=== PATIENT | female | born 1950 | race Caucasian/White ===

== ENCOUNTER 2019-12-27 15:48 | Outpatient (REF) | payer MEDICARE, SELFPAY ==
[2019-12-27 18:35] LABS: Thyroid Stimulating Hormone 4.23 mIU/mL (0.32-4.0)
== END 2019-12-27 15:49 | disposition home or self-care (01) ==
LOC: HO.MANLR 15:48
PROVIDERS: PCP Internal Medicine; Visit Provider Internal Medicine
DX: E03.9 Hypothyroidism, unspecified (principal)
CPT/HCPCS: 84443

== ENCOUNTER 2022-04-22 06:14 | Outpatient (REF) | payer MEDICARE, SELFPAY ==
[2022-04-22 11:57] LABS: MANUAL DIFF FLAG NO
[2022-04-22 12:15] LABS: Basophils Absolute Auto 0.1 X10*3/uL (0.0-0.2); Basophils Percent Auto 0.6 % (0-2); Eosinophils Absolute Auto 0.2 X10*3/uL (0.0-0.4); Eosinophils Percent Auto 2.1 % (0-4); Hematocrit 45.7 % (37.0-47.0); Hemoglobin 14.9 g/dl (12.0-16.0); Imm Gran Abs Auto 0.02 X10*3/uL (0.00-0.03); Imm Gran Pct Auto 0.3 % (0.0-0.4); Lymphocytes Absolute Auto 4.3 X10*3/uL (1.2-4.9); Lymphocytes Percent Auto 54.3 % (20-40); Mean Corpuscular HGB Conc 32.6 g/dl (31.0-35.0); Mean Corpuscular Hemoglobin 29.2 pg (27.0-33.0); Mean Corpuscular Volume 89.4 fL (80.0-98.0); Mean Platelet Volume 10.6 fL (9.4-12.3); Monocytes Absolute Auto 0.4 X10*3/uL (0.1-1.2); Monocytes Percent Auto 5.1 % (2-11); Neutrophils Percent Auto 37.6 % (45-73); Platelet Count 188 X10*3/uL (160-400); Red Blood Count 5.11 X10*6/uL (4.20-5.50); Red Cell Distribution Width 12.6 % (11.0-16.0); White Blood Count 7.9 X10*3/uL (4.8-10.8)
[2022-04-22 12:43] LABS: Alanine Aminotransferase 15 U/L (0-31); Albumin Level 4.2 g/dL (3.5-5.0); Alkaline Phosphatase 61 U/L (39-117); Anion Gap 12 (12-20); Aspartate Amino Transferase 16 U/L (5-31); Bilirubin Total 0.7 mg/dL (0.0-1.0); Blood Urea Nitrogen 23 mg/dL (9-16); Calcium 9.4 mg/dL (8.4-10.2); Carbon Dioxide 28 mmol/L (22-29); Chloride 108 mmol/L (96-108); Cholesterol 220 mg/dL; Estimated Glomerular Filt Rate > 60; Glucose Random 108 mg/dL (60-115); HDL Cholesterol 61 mg/dL; LDL Cholesterol Calculated 135 mg/dl; Potassium 4.5 mmol/L (3.3-5.1); Sodium 143 mmol/L (135-145); Total Protein 6.3 g/dL (6.5-8.0); Triglycerides 122 mg/dL
[2022-04-22 12:46] LABS: Thyroid Stimulating Hormone 2.09 uIU/mL (0.32-4.0); Vitamin D 25-OH Total 13.3 ng/mL (>30)
== END 2022-04-22 06:15 | disposition home or self-care (01) ==
LOC: HO.HMGCLDS 06:14
PROVIDERS: PCP Internal Medicine; Visit Provider Internal Medicine
DX: Z00.00 Encounter for general adult medical examination without abnormal findings (principal); R53.83 Other fatigue
CPT/HCPCS: 36415; 80053; 80061; 82306; 84443; 85025

== ENCOUNTER 2023-04-22 10:03 | Outpatient (REF) | payer MEDICARE, SELFPAY ==
[2023-04-22 13:20] LABS: MANUAL DIFF FLAG NO
[2023-04-22 13:22] LABS: Basophils Percent Auto 0.3 % (0-2); Eosinophils Absolute Auto 0.1 X10*3/uL (0.0-0.4); Eosinophils Percent Auto 0.9 % (0-4); Hematocrit 46.2 % (37.0-47.0); Imm Gran Abs Auto 0.02 X10*3/uL (0.00-0.03); Imm Gran Pct Auto 0.2 % (0.0-0.4); Lymphocytes Absolute Auto 4.4 X10*3/uL (1.2-4.9); Lymphocytes Percent Auto 48.3 % (20-40); Mean Corpuscular HGB Conc 32.5 g/dl (31.0-35.0); Mean Corpuscular Hemoglobin 29.1 pg (27.0-33.0); Mean Corpuscular Volume 89.5 fL (80.0-98.0); Mean Platelet Volume 10.4 fL (9.4-12.3); Monocytes Absolute Auto 0.4 X10*3/uL (0.1-1.2); Monocytes Percent Auto 4.1 % (2-11); Neutrophils Absolute Auto 4.2 x10*3/uL (2.0-8.3); Neutrophils Percent Auto 46.2 % (45-73); Platelet Count 202 X10*3/uL (160-400); Red Blood Count 5.16 X10*6/uL (4.20-5.50); Red Cell Distribution Width 12.7 % (11.0-16.0)
[2023-04-22 14:19] LABS: Alanine Aminotransferase 22 U/L (0-31); Albumin Level 4.2 g/dL (3.5-5.0); Alkaline Phosphatase 72 U/L (39-117); Anion Gap 11 (12-20); Aspartate Amino Transferase 22 U/L (5-31); Bilirubin Total 0.5 mg/dL (0.0-1.0); Blood Urea Nitrogen 23 mg/dL (9-16); Calcium 9.9 mg/dL (8.4-10.2); Carbon Dioxide 28 mmol/L (22-29); Chloride 107 mmol/L (96-108); Cholesterol 192 mg/dL (<200); Estimated Glomerular Filt Rate > 60; Glucose Random 92 mg/dL (60-115); HDL Cholesterol 65 mg/dL (>40); LDL Cholesterol Calculated 102 mg/dL (<100); Potassium 4.4 mmol/L (3.3-5.1); Sodium 142 mmol/L (135-145); Total Protein 6.6 g/dL (6.5-8.0); Triglycerides 127 mg/dL (<150)
[2023-04-22 14:26] LABS: Free T4 (Free Thyroxine) 1.02 ng/dL (0.71-1.85); Thyroid Stimulating Hormone 2.15 uIU/mL (0.32-4.0)
== END 2023-04-22 10:04 | disposition home or self-care (01) ==
LOC: HO.MANLDS 10:03
PROVIDERS: Visit Provider Internal Medicine
DX: Z00.00 Encounter for general adult medical examination without abnormal findings (principal); E03.9 Hypothyroidism, unspecified
CPT/HCPCS: 36415; 80053; 80061; 84439; 84443; 85025

== ENCOUNTER 2024-09-07 10:51 | Outpatient (REF) | payer MEDICARE, SELFPAY ==
--- NOTE | ~2024-09-07 | XR_ITS ---
EXAMINATION: XR BILATERAL HIPS WITH AP PELVIS CLINICAL INFORMATION: ACUTE RT SIDED LOW BACK PAIN,LUMBAGA WITH SCIATICA COMPARISON: None available. TECHNIQUE: AP and frog-leg lateral views of each hip and an AP view of the pelvis. FINDINGS: SI joints are mildly degenerated with small marginal osteophytes. Small focal sclerotic density cephalad to the right acetabulum is likely a bone island. Total hip arthroplasty has been performed on the right. There is heterotopic ossification in the soft tissues between the acetabular roof and the proximal end of the femoral component. There is no abnormal lucency at the bone metal interfaces. There is no periprosthetic fracture. The left hip joint demonstrates subtle axial joint space narrowing. There is a small marginal osteophyte involving the posterior femoral head. Lateral Center edge angle measured 41 degrees. XR/XR hip BI w PEL1V IMPRESSION: Total hip arthroplasty on the right with heterotopic ossification. Mild axial joint space narrowing involving the left hip joint suggests an underlying primary articular cartilage etiology rather than primary osteoarthritis. Coxa profunda, left hip. Electronically signed by: Von Sutton MD 09/07/2024 11:52 AM EDT
--- NOTE | ~2024-09-07 | XR_ITS ---
EXAMINATION: XR LUMBOSACRAL SPINE CLINICAL INFORMATION: RT HIP REPLACEMENT, LUMBAGO WITH SCIATICA,LOW BACK PAIN COMPARISON: None TECHNIQUE: Three views of the lumbosacral spine. FINDINGS: Right upper quadrant clips are probably related to cholecystectomy. There are 5 nonrib-bearing lumbar segments. Convex left curvature of the thoracolumbar junction measured 13 degrees. T12-L1: There is mild disc space narrowing. L1-2: Unremarkable. L2-3: There is severe space narrowing with endplate sclerosis and facet sclerosis. L3-4: There is mild disc space narrowing with subtle anterolisthesis and endplate ossified. There is facet sclerosis and osteophytes. L4-5: There is grade 1 anterolisthesis with mild to moderate disc space narrowing and endplate irregularity. There is facet sclerosis and osteophytes. L5-S1: There is moderate to severe disc space narrowing with large anterior osteophyte and mild facet sclerosis. XR/XR lumbar spine 2-3V IMPRESSION: Degenerative disc disease with facet arthropathy and mild dextroscoliosis. Electronically signed by: Von Sutton MD 09/07/2024 11:55 AM EDT
--- OUTSIDE RECORDS SUMMARY | 2024-09-07 12:14 | XMS_ITS | Data Portability ---
Author Organization [facility], Telehealth Patient Home Address [address] [place] [address] Assessment Encounter Date Assessment Date Assessment LastModified by Organization Details LastModified Time 04/27/2024 04/27/2024 Patient presente d to office today for their Medicare Annual Wellness Visit. Education was provided on healthy nutrition, including a diet rich in fruits and vegetables, minimizing simple carbohydrates, salt, and saturated fats. Encouraged regular cardiovascular exercise such as walking at least 30 minutes daily, 5 times per week. Emphasized preventive health measures and educated pt on fall prevention and community-based lifestyle interventions to help reduce health risks and promote healthy living. [email or web address] Not available 04/26/2024 15:56:24 Plan of Treatment Reminders Order Date Submit Date Provider Last Modified By Organization Details Last Modified Time Details Appointments FOLLOW UP 2024 09:45A M ANAI MATHEW Not available Not available Not available PROCEDURE 15 2024 09:45A M ANAI MATHEW Not available Not available Not available ANNUAL EXAM 2025 10:30A M DR AVERY Not available Not available Not available Lab TSH + free T4, serum 2023 024 [facility], [address] [place] [address], [id number], 04/22/2023 09:45:51 CMP, serum or plasma 2023 024 [facility], [address] [place] [address], [id number], 04/23/2023 11:13:17 CBC w/ auto diff 2023 024 [facility], [address] [place] [address], [id number], 04/22/2023 09:45:51 lipid panel, blood 2023 024 [facility], [address] [place] [address], [id number], 04/22/2023 09:45:51 CMP, serum or plasma 2022 023 [facility], [address] [place] [address], [id number], 04/23/2022 11:24:13 CBC w/ auto diff 2022 023 [facility], [address] [place] [address], [address], 04/16/2022 12:05:18 lipid panel, blood 2022 023 [facility], [address] [place] [address], [address], 04/23/2022 11:24:13 vitamin D, 25-hydrox y, total, serum 2022 023 [facility], [address] [place] [address], [address], 04/24/2022 08:46:57 TSH, serum or plasma 2022 023 [facility], [address] [place] [address], [id number], 04/16/2022 12:05:18 Referral orthopedi c surgeon referral 2023 024 donaldo Griffin MD, [address], [place], [address], 04/29/2023 08:15:48 Procedures None recorded. Surgeries None recorded. Imaging XR, lumbosacr al spine, 2 or 3 view 2024 025 [facility] (Imaging), [address] [place], [address], 09/07/2024 12:01:15 XR, hip + pelvis, bilateral , 3 or 4 view - bilateral 2024 025 [facility] ([facility]), [address] [place], [address], 09/07/2024 11:58:54 Medication Orders cyclobenz aprine 10 mg tablet 2024 025 [facility], [address] [facility] [place], [address], 09/07/2024 10:14:10 mupirocin 2 % topical ointment 2024 025 [facility], [address] [facility], [address], 04/27/2024 11:53:00 clotrimaz ole 10 mg lizbeth 2022 023 [facility], [address] [place], [address], 04/22/2023 09:28:38 Patient TargetsNo targets recorded. Patient Instructions Encounter Date Encounter Id Patient Instructions Last Modified By Organization Details Last Modified Time 12/27/2019 [id number] knee arthritis: care instructions Not available 12/27/2019 15:43:59 04/16/2022 [id number] candidiasis: car e instructions Not available 04/16/2022 11:51:03 04/22/2023 [id number] knee arthritis: care instructions Not available 04/22/2023 09:57:32 04/27/2024 [id number] advance care planning: care instructions Not available 04/27/2024 11:50:21 Discussed and explained advance directives such as standard forms to the . Face to face discussion lasted for a duration of ___ minutes. [email or web address] Not available 04/26/2024 15:56:24 Reason for Referral Orthopedic Surgeon Referral for Osteoarthritis of knee Referring Physician: Billy Avery, Internal Medicine, Encounter Date: 04/22/2023 Results Created Date Observation Date Name Description Value Unit Range Abnormal Flag Note LastModifiedBy Organization Detail LastModifiedTime 09/08/19 25 09/07/2024 XR, hip + pelvi s, bilat eral, 3 or 4 view No observ ation record ed. [facility] (Medical Records) [address] [place], [address], 09/07/2024 12:06:44 09/08/19 25 09/07/2024 imagi ng/di agnos tic resul t No observ ation record ed. [facility] (Medical Records) [address] [place], [address], 09/07/2024 11:59:48 09/08/19 25 09/07/2024 XR, lumbo sacra l spine , 2 or 3 view No observ ation record ed. [facility] (Medical Records) [address] [place], [address], 09/07/2024 12:01:15 Result Notes None recorded. Problems Name Problem SNOMED Code Status Onset Date Resolution Date Notes Provider Name and Address Organization Details Recorded Time Hypothyro idism 35149021 Active 2017 Marycruz ross [facility] 8 08:16:36 Chronic fatigue syndrome 04098133 Active 2017 Marycruz ross [facility] 8 08:16:48 Fibromyal princess 620826328 Active 2017 Marycruz ross [facility] 8 08:17:25 Osteoarth ritis of knee 374761538 Active 2017 Marycruz ross [facility] 8 08:17:43 Piriformi s syndrome 123476565 Active 2017 Marycruz ross [facility] 8 08:17:55 Sleep disorder 63158402 [facility] 08:18:07 Iliotibia l band friction syndrome of right knee 288574733279 104 Active 2019 Billy Avery, DO [address] [place] [address], [address], [facility] 0 10:15:25 Candidias is of mouth 73124524 Active 2022 Billy Avery, DO [address] [place] [address], [address], [facility] 3 11:49:31 Colitis 81496310 Active 2023 Billy Avery, DO [address] [place] [address], [address], [facility] 4 21:21:13 Folliculi tis 10798540 Active 2024 Billy Avery, DO [address] [place] [address], [address], [facility] 5 11:52:33 Spasm 59084418 Active 2024 Billy Avery, DO [address] [place] [address], [address], [facility] 5 13:39:08 Right-karime ed piriformi s syndrome 173955790823 108 Active 2024 ANAI MATHEW [address] [place] [address], [address], [facility] 5 09:59:50 Acute back pain with sciatica 764057933 Active 2024 ANAI MATHEW [address] [place] [address], [address], [facility] 5 10:07:15 Familial dysautono kim 69133028 Active 2024 ANAI MATHEW [address] [place] [address], [address], [facility] 5 10:10:57 Impacted cerumen in right ear 808055095251 9103 Active 2024 ANAI MATHEW [address] [place] [address], [address], [facility] 5 10:24:49 Problem Notes None recorded. Procedures Surgical History Date Name Laterality Status Provider Name and Address Organization Details Recorded Time 019 Excision and closure completed Billy Avery DO [address] [place] [address], [address], [facility] 11/17/2018 15:52:50 018 Colonoscopy completed Marycruz Carranza [facility] 01/06/2018 08:37:18 001 Joint Replacement completed Alexus Chavez NP, S [address] [place] [address], [address], [facility] 12/10/2017 10:42:36 980 Cholecystectomy completed Alexus Chavez NP, S [address] [place] [address], [address], [facility] 12/10/2017 10:42:50 Tot disc arthrp ea addl lmbr completed Alexus Chavez NP, S [address] [place] [address], [address], [facility] 12/10/2017 11:03:54 Imaging Results None recorded. Procedure Notes None recorded. Medical Equipment None Reported. Allergies Allergen ID Allergen Name Allergen Category Reaction Reaction Severity Criticality Documentation Date Start Date Code Code System Note Provider Name and Address Organization Details Recorded Time 2425 Substance with sulfonami de structure and antibacte rial mechanism of action (substanc e) medicatio n Not available Not available Not available 12/10/2017 79733 8003 [facility] 10:35:58 3763 adhesive tape environme nt,medica tion Not available Not available Not available 05/12/2019 [id number] UNK Billy Avery DO [address] [place] [address], [address], [facility] 0 10:03:16 8392 prednison e medicatio n other Not available low 11/28/2023 8640 RxNorm Sukhwinder ross, [facility] 4 11:42:48 Medications Name Sig Start Date Stop Date Status Note LastModified by Organization Details LastModified Time cyclobenzap rine 10 mg tablet Take 1 tablet 3 times a day by oral route as needed for 14 days. 2024 active Not Available Not Available Not Avai lable clotrimazol e 10 mg lizbeth Take 1 tablet 4 times a day by oral route for 7 days. 04/22 completed Not Available Not Available Not Available [place] Thyroid 90 mg tablet TAKE 1 TABLET BY MOUTH EVERY DAY 04/16 completed Not Available Not Available Not Available Medrol (Pj) 4 mg tablets in a dose pack Take 1 dose pk by oral route as directed for 6 days. 04/27 completed Not Available Not Available Not Available cephalexin 500 mg capsule Take 1 capsule 3 times a day by oral route for 10 days. 11/23 completed Not Available Not Available Not Available ibuprofen 200 mg tablet Take 2 tablets 3 times a day by oral route. active Not Available Not Available No t Available mupirocin 2 % topical ointment APPLY A SMALL AMOUNT TO THE AFFECTED AREA BY TOPICAL ROUTE 3 TIMES PER DAY 2024 active Not Available Not Available Not Avai lable magnesium active Not Available Not Ashley ilable Not Available Tylenol PRN active Not Available Not Avail able Not Available Zyrtec 04/22 completed Not Available Not Available Not Available [place] 3 active Not Available Not Avail able Not Available Probiotic active Not Available Not Ashley ilable Not Available salicylic acid 27.5 % topical film-formin g liquid APPLY BY TOPICAL ROUTE ONCE DAILY ;COVER ENTIRE WART SURFACE WITH 2 APPLICATI ONS, ALLOWING THE FIRST TO DRY BEFORE APPLYING THE SECOND 11/04 completed Not Available Not Available Not Available Motrin IB 200 mg capsule Take 1 capsule every 6 hours by oral route. 12/26 completed Not Available Not Available Not Available Vitals Date Recorded Body height Body mass index (BMI) Body weight Heart rate Oxygen saturation Oxygen saturation in Arterial blood by Pulse oximetry Systolic And Diastolic Provider Name and Address Organization Details Last Updated DateTime 3 157.48 cm 40.3 kg/m2 758615. 48 g 66 /min 96 % 96 % 110/60 mm[Hg] Zunilda Marshallpee [facility] 3 11:33:29 Date Recorded Body height Body mass index (BMI) Body weight Heart rate Oxygen saturation Oxygen saturation in Arterial blood by Pulse oximetry Systolic And Diastolic Provider Name and Address Organization Details Last Updated DateTime 4 157.48 cm 38.8 kg/m2 30557.9 4 g 72 /min 99 % 99 % 142/84 mm[Hg] Billy Avery DO [address] [place], [address] [place] [address] 4 09:28:00 Date Recorded Body height Body mass index (BMI) Body weight Heart rate Oxygen saturation Oxygen saturation in Arterial blood by Pulse oximetry Systolic And Diastolic Provider Name and Address Organization Details Last Updated DateTime 5 157.48 cm 40.2 kg/m2 89878.2 4 g 66 /min 98 % 98 % 134/86 mm[Hg] Alma [facility] 5 11:30:15 Date Recorded Body height Body mass index (BMI) Body weight Heart rate Oxygen saturation Oxygen saturation in Arterial blood by Pulse oximetry Systolic And Diastolic Provider Name and Address Organization Details Last Updated DateTime 5 157.48 cm 40.7 kg/m2 311093. 3 g 90 /min 95 % 95 % 128/84 mm[Hg] lAma Santizo [facility] 5 09:47:53 Date Recorded Body height Body mass index (BMI) Body weight Heart rate Oxygen saturation Oxygen saturation in Arterial blood by Pulse oximetry Systolic And Diastolic Provider Name and Address Organization Details Last Updated DateTime 0 157.48 cm 39.3 kg/m2 71041.7 2 g 76 /min 96 % 96 % 124/70 mm[Hg] Billy Avery DO [address] [place], [address], [facility] 0 15:08:05 Social History Question Answer Notes LastModified by Organizat ion Details LastModified Time Tobacco Smoking Status Never Smoker Not Available [employer] 12/28/2019 03:36:23 What Was The Date Of Your Most Recent Tobacco Screening? 09/07/2024 [email or web address] Information not available 09/07/2024 Sex: Unknown Functional Status None recorded. Mental Status None recorded. Family History Relationship Description Onset Age of this Age Resolved Age Notes LastModified by Organization Details LastModified Time Father Parkinsonism 86 [place] us cell skin cancer enmanuelwski Not available 12/10/2017 10:40:54 Mother Hypertensive disorder lung cancer eskawski Not available 12/10/2017 10:41:30 Medical History Condition Response Coronary Artery Disease N Gout N Kidney Stones Y Blood Diseases N Hyperthyroidism N Blood Transfusion Y Breast Cancer N Hypothyroidism Y Lung Disease N Depression Y COPD N Defects or Inherited Disease N Difficulty Swallowing N Anesthesia Complications N Anxiety Disorder Y Meniere's disease N Muscle, Joint, or Bone Problems Y Vision or Eye Problems Y Arthritis N Mental Disorder N Cancer N Stroke N Varicosities N Bladder or Kidney Problems N High Cholesterol N Liver Disease N Fibromyalgia Y Headaches N Kidney Disease N Allergies/Hayfever Y Heart Problems N Hospitalizations Y Thyroid Problems Y GI Problems Y Eating Disorder N Skin Problems N Anemia N MRSA exposure N Constipation Y Mental Illness N Diabetes N Ovarian Cancer N Seizures/Epilepsy N Tuberculosis N Congestive Heart Failure (CHF) N Eczema N Abuse/Domestic Violence N Diverticulitis N Asthma N Reflux/GERD Y Hepatitis N Heart Disease N Pulmonary Embolism N Chronic Ear Infections N Hypertension N Chicken Pox Y Autism Spectrum Disorder (ASD) N Osteoporosis N Thrombophilias N Gynecological History Statement/Question Response If Post Menopausal, Age at Menopause 56 Age at Menarche 12 Obstetrics History GPAL:G 0 P 0 0 0 0 Immunizations Vaccine Type Date Status Note Provider Nam e and Address Organization Details Recorded Time Influenza, split virus, quadrivalent, preservative 8 completed Billy Avery DO [address] [place], [address], [facility] 12/03/2017 06:58:53 Influenza, split virus, quadrivalent, preservative 10/25/201 9 completed Billy Avery DO [address] [place] [address], [address], [facility] 12/20/2018 08:31:38 Pneumococcal conjugate PCV 13 9 completed Billy Avery DO [address] [place] [address], [address], [facility] 12/20/2018 08:31:48 Influenza, split virus, quadrivalent, preservative 0 completed Billy Avery DO [address] [place] [address], [address], [facility] 12/27/2019 15:09:12 Past Encounters Encounter ID Performer Location Encounter Start Date Encounter Closed Date Diagnosis/Indication Diagnosis SNOMED-CT Code Diagnosis ICD10 Code Diagnosis Note [id number] Billy Avery [facility] Internal [address],[place] [address] 10/06/2017 11:15:20 10/06/2017 12:36:01 Lipoma of back 690268242 D17.1 Hypothyroidism 80730785 E03.9 History of polyp of colon 996301322 Z86.010 Pt would like applicatio n for cologuard, will fax in Screening procedure 2012 5006 Z13.9 Pt defers mammogram [id number] Billy Avery [facility] Internal [address],[place] [address] 11/04/2017 10:31:05 11/04/2017 10:56:15 Colorectal cancer detected by DNA-based stool screening 153453440 R85.89 [id number] Billy Avery [facility] Internal [address],[place] [address] 11/14/2017 10:42:33 11/14/2017 16:04:22 Allergic reaction to insect bite 194658893 W57.XXXA Colorectal cancer detected by DNA-based stool screening 352242363 R85.89 scheduled colonoscop y [id number] Billy Amezquitaricha [facility] Internal [address],[place] [address] 11/19/2017 09:07:24 11/19/2017 09:42:11 Adult health examination 540600512 Z00.00 encouraged to keep active and walking Screening for malignant neoplasm of colon 450939102 Z12.11 already screening with colonoscop y Screening for osteoporosis 891417211 Z13.820 Screening mammography 24 245761 Z12.31 refused Hypothyroidism 08582583 E03.9 tsh Osteoarthr itis of knee 223589426 M17.0 cont activity and has been doing better [id number] Billy Avery [facility] Internal Medicine [address] [facility] [place] [address] 12/10/2017 10:29:52 12/15/2017 09:34:12 Adult health examination 871978715 Z00.00 Active or passive immunization 062933870 Z23 Screening procedure 2012 5006 Z13.9 [id number] Billy Avery [facility] Internal Medicine [address] [facility] [facility] [place] [address] 08/10/2018 15:46:30 08/10/2018 16:39:42 Fibromyalgia 608773275 M79.7 Hypothyroidism 68617638 E03.9 Verruca vulgaris 5968538 3 B07.9 [id number] Billy Avery [facility] Internal Medicine [address] [facility] [place] [address] 11/04/2018 13:52:43 11/04/2018 14:35:46 Hypothyroidism 35213776 E03.9 tsh is 0.2 but she is doing ok overall Piriformis syndrome 1291 74866 G57.00 Fibromyalgia 648566347 M 79.7 stable overall [id number] Billy Avery [facility] Internal Medicine [address] [facility] [place] [address] 11/17/2018 15:20:26 11/17/2018 16:05:50 Ganglion/synovial cyst - hand 651838135 M67.441 excixion of lesion well monico [id number] Billy Avery [facility] Internal Medicine [address] [facility] [place] [facility] [place] [address] 05/12/2019 09:59:08 05/12/2019 10:31:10 Piriformis syndrome 661212102 G57.00 will set her up for a referral for botox inj of piriformis since she has completed physical therapy program Hypothyroidism 92127464 E03.9 tsh is 0.95 and she is doing ok overall has lost some weight Osteoarthr itis of right knee joint 4610928998 83651 M17.11 [id number] Billy Avery [facility] Internal Medicine [address] [facility] [facility] [place] [address] 07/02/2019 09:28:42 07/02/2019 10:13:49 Hypothyroidism 23677711 E03.9 tsh is 0.95 and she is doing ok overall has lost some weight Iliotibial band friction syndrome of right knee 4653448436 72360 M76.31 will cont conserv tx Osteoarthr itis of knee 298473012 M17.0 cont activity and has been doing better Cellulitis of right lower limb 8015869735 7463587 L03.115 will apply clotrimazo le and mupirocin due to puncture hx from plant [id number] Billy Avery [facility] Internal Medicine [address] [facility],[place] [address] 12/27/2019 14:33:54 12/27/2019 16:10:23 Hypothyroidism 96951803 E03.9 she will get her tsh checked today given she is has lost some weight Osteoarthr itis of knee 997871285 M17.0 cont activity and has been doing better Sleep disorder 02977198 G47.9 doing well and is having no major issues [id number] Billy Avery [facility] Internal Medicine [address] [facility] [address] 04/16/2022 11:25:55 04/16/2022 14:12:25 Active or passive immunization 392199337 Z23 Adult [facility] th examination 600086607 Z00.00 encouraged to keep active and walkingsti ll having issues with her right sciatic region in the piriformis and glute and radiates down her right leg Candidiasis of mouth 797 92523 B37.0 [id number] Billy Avery [facility] Internal Medicine [address] [facility] [address] 04/22/2023 09:23:34 04/22/2023 10:05:51 Active or passive immunization 569492533 Z23 utd flu rsv not done reccomende d Adult heal th examination 328796103 Z00.00 encouraged to keep active and walkingsti ll having issues with her right sciatic region in the piriformis and glute and radiates down her right leg Hypothyroidism 41202945 E03.9 she will get her tsh checked today given she is has lost some weight 8 lbs Osteoarthr itis of knee 392250341 M17.0 cont activity and has been doing better [id number] Billy Avery, [facility] Internal Medicine [address],[place] [address] 04/27/2024 11:22:42 04/27/2024 12:06:46 Adult health examination 937133212 Z00.00 encouraged to keep active and walking Screening for cardiovascular system disease 650756019 Z13.6 reviewed from last year we ximena wait another year Screening for osteoporosis 554492798 Z13.820 doesnt require Screening mammography 24 286508 Z12.31 refused Fibromyalgia 812104297 M 79.7 stable overall Hypothyroidism 45072525 E03.9 she will get her tsh checked today given she is has lost some weight 8 lbs Folliculitis 58578450 L7 3.9 [id number] Billy Avery [facility] Internal Medicine [address] [facility] [address] 09/07/2024 09:40:28 09/07/2024 11:24:13 Depression screening 443015734 Z13.31 NEGATIVE Right-side d piriformis syndrome 5579977766 84159 G57.01 will set up with PT for eval and continued treatment planrecomm ended eval for low back issues as well that may be contributi ng to change it gait History of repair of hip joint 348657931 Z96.641 will set up with XR hip bilateral, comparison from good hip to R hip Acute back pain with sciatica 695139185 M54.41 set up with XR spine and hips Familial dysautonomia 29 989581 G90.1 father and sister Spasm 48649479 R25.2 will set up with another fill of msk relaxer Impacted c erumen in right ear 7512086840 831336 H61.21 lavage on 09/07/24 Health Concerns Section Related Observation LastModified by Organization Detcat ls LastModified Time None Recorded Concern Status LastModified by Organization Details LastModified Time None Recorded Advance Directives Directive None Recorded Payers Insurance Date Sequence Insurance Name Policy Number Policy Mcmanus Covered Member ID Mcmanus Member ID Guarantor Name 09/04/2024 1 [place]ARE B[place] [employer] Nenita Lara [id number] Nenita Macro 09/04/2024 2 [place] [id number] Nenita Lara [id number] Nenita Lara Notes Date Note Type Note Provider Name a nd Address Organization Details Recorded Time 0 text/html relates has stopped the thyroid med in nov bc was having sx such as burning in stomach and into throat and tongue burning stopped the dose in 01 december relates seems to be doing good relates yesterday was severely fatigued appetit good sleeps good Billy Avery DO [address] [place] [address], [phone], [facility] 12/27/2019 15:45:01 3 text/html Annual WellnessReported bypatient.Diet and Nutrition:healthy diet Fracture Risk:no history of fractures; no recent explained fracture; no sudden unexplained fractures; no previous musculoskeletal injuries Physical Activity:exercises on a regular basis; recent increase in physical activity; good physical condition Additional Lifestyle Factors:no tobacco use; no alcohol intake; stopped drinking alcohol Depression Risk:never feels sad, empty, or tearful; no loss of interest in activities; no significant changes in weight; no sleep disturbances or insomnia; no agitation; no loss of energy; no feelings of worthlessness or guilt; no thoughts of suicide; no history of depression; no history of mood disorders Hearing:no loss of hearing Vision:no vision problems Billy Avery DO [address] [place] [address], [phone], [facility] 04/16/2022 11:56:53 4 text/html Annual WellnessReported bypatient.Diet and Nutrition:healthy diet Fracture Risk:no history of fractures; no recent explained fracture; no sudden unexplained fractures; no previous musculoskeletal injuries Physical Activity:exercises on a regular basis; recent increase in physical activity; good physical condition Additional Lifestyle Factors:no tobacco use; no alcohol intake; stopped drinking alcohol Depression Risk:never feels sad, empty, or tearful; no loss of interest in activities; no significant changes in weight; no sleep disturbances or insomnia; no agitation; no loss of energy; no feelings of worthlessness or guilt; no thoughts of suicide; no history of depression; no history of mood disorders Hearing:no loss of hearing Vision:no vision problems has been having a lot of muscle aches and painrelates that her back and knees have been hurtingshe has bought a new mattress and is increasing her magnesiumshe wants to see an ortho now Billy Avery, DO [address] [place], [phone], [facility] 04/22/2023 09:58:25 5 text/html Medicare Annual Wellness VisitReported bypatient.Diet and Nutrition:healthy diet Fracture Risk:no history of fractures; no recent explained fracture; no sudden unexplained fractures; no previous musculoskeletal injuries Physical Activity:exercises on a regular basis; recent increase in physical activity; good physical condition Depression Risk:never feels sad, empty, or tearful; no loss of interest in activities; no significant changes in weight; no sleep disturbances or insomnia; no agitation; no loss of energy; no feelings of worthlessness or guilt; no thoughts of suicide; no history of depression; no history of mood disorders Orientation:no disorientation to time; no disorientation to date; no disorientation to place Concentration and Memory:no decreased concentrating ability; no memory lapses or loss; does not forget words Speech/Motor difficulties:no speech difficulties; no difficulty expressing formulated concepts; no difficulty with fine manipulative tasks; no difficulty writing/copying; no slowed reaction time; does not knock things over when trying to pick them up Hearing:no loss of hearing Vision:no vision problems Activities of Daily Living:able to bathe with limited or no assistance; able to contol urination and bowels; able to dress with limited or no assistance; able to feed self with limited or no assistance; able to get out of chair or bed with limited or no assistance; able to groom with limited or no assistance; able to toilet with limited or no assistance Instrumental Activities of Daily Living:able to do house work with limited or no assistance; able to grocery shop with limited or no assistance; able to manage medications with limited or no assistance; able to manage money with limited or no assistance; able to prepare meals with limited or no assistance; able to use the phone with limited or no assistance Falls Risk Assessment:no frequent falls while walking; no fall in the past year; no fall since last visit; no dizziness/vertigo Home Safety:no unsafe [place] hazzards; no unsafe stairs; no unsafe gas appliances; working smoke/CO detectors; wears protective head gear for biking/high velocity; use of seatbelts; practicing 'safer sex'; no vision or hearing loss while driving; no fire arms; has hand bars in the bathroom/shower; good lighting in the home Billy Avery, DO [address] [facility] [address], [place], [phone], [facility] 04/27/2024 11:53:08 5 text/html c/o muscle pain/vertigo the patient reports that she developed piriformis syndrome about 10ish years ago after her R hip replacement, which she [facility] [place] [facility] the patient reports that she started to notice the same symptoms recently, she started to do the PT exercises she has from the rehab which seems to have helped the patient noted that she started to develop vertigo, the patient reports that it is exacerbated by the PT exercises and walking (hiking), had to d/c the exercises, but seems like her the patient is not taking any Otilia, which helped with hives from allergies which did help mildly with the vertigo, sinus congestion combination of different things that are contributing to the vertigo the patient reports that it also probably got worse with bending down to weedcombination positional changes and plant/mild/mood allergies the patient agrees with planalso needs flush, has impaction which could be contributing to her dizziness/vertigo fam hx of dysautonomia which could be causing issues with joints, vertigo issuesnever was tested, may need a genetic consult depending will fu with MRIs after XRs are performed ANAI MATHEW [address] [facility] [address], [place], [phone], [place] [facility] 09/07/2024 10:25:22 OBGyn Episode No OBEpisode recorded.
== END 2024-09-07 10:52 | disposition home or self-care (01) ==
LOC: HO.XRAY 10:51
PROVIDERS: PCP Internal Medicine; Visit Provider Physician Assistant
DX: M54.41 Lumbago with sciatica, right side (principal); Z96.641 Presence of right artificial hip joint
CPT/HCPCS: 72100; 73521

== ENCOUNTER → 2024-09-07 10:57 | Outpatient (BNV) | payer MEDICARE, SELFPAY | PROVIDERS: PCP Internal Medicine; Visit Provider Radiology Diagnostic Radiology | DX: M54.41 Lumbago with sciatica, right side (principal); M51.369 Other intervertebral disc degeneration, lumbar region without mention of lumbar back pain or lower extremity pain | CPT/HCPCS: 72100; 73521 ==